=== PATIENT | female | born 1965 | race Caucasian/White ===

== ENCOUNTER 2024-07-24 05:15 | Day surgery (SDC) | payer OTHER ==
[2024-07-17 12:58] VITALS: BP 121/80
[~2024-07-24] VITALS: Ht 165.1 cm; Wt 83.9 kg
[~2024-07-24 05:15] MED LIST: ECOTRIN81 MG PO; GLUMETZA1000 MG PO; SYNTHROID50 MCG PO; TOPROL XL50 M1 PO; VITAMIN D310 MCG/1 M PO
[2024-07-24] MEDS ORDERED: POVIDONE-IODINE 118 ML BOTT TOP ONE (07:40)
[2024-07-24] MEDS ORDERED: IBU600 MG PO (08:24)
[2024-07-24] MEDS ORDERED: MORPHINE SULFATE 4 MG/ML VIAL IV ONE (08:45)
== END 2024-07-24 11:35 | disposition home or self-care (01) ==
LOC: CIR.AMB 05:15
PROVIDERS: ATTEND Obstetrics & Gynecology Gynecology
DX: N84.0 Polyp of corpus uteri (principal); N95.0 Postmenopausal bleeding; Z88.2 Allergy status to sulfonamides